=== PATIENT | male | born 1965 | race Two or more races ===

== ENCOUNTER 2025-07-05 15:41 | Emergency (ER) | payer OTHER ==
[~2025-07-05] VITALS: Ht 170.2 cm; Wt 97.5 kg
[2025-07-05 16:19] VITALS: BP 126/75; O2SAT 99
[2025-07-05] MEDS ORDERED: CANDESARTAN CILE8 MG (16:21)
[2025-07-05] MEDS ORDERED: TOPROL XL50 M1 PO (16:21)
[2025-07-05] MEDS ORDERED: NORVASC2.5 M1 PO (16:48)
== END 2025-07-05 18:13 | disposition home or self-care (01) ==
LOC: ER 15:42
DX: I10 Essential (primary) hypertension (principal)